=== PATIENT | female | born 1950 | race Two or more races ===

== ENCOUNTER 2018-11-07 05:43 | Day surgery (SDC) | payer MEDICAID ==
[~2018-11-07] VITALS: Ht 154.9 cm; Wt 76.2 kg
[2018-11-07] MEDS ORDERED: TROPICAMIDE 1% OPHTH DROPS 15ML RIGHTEYE NR (06:00)
[2018-11-07] MEDS ORDERED: PHENYLEPHRINE HCL 10% OPHTH DROPS 5ML RIGHTEYE NR (06:00)
[2018-11-07] MEDS ORDERED: LIDOCAINE HCL/PF 2% 20 MG/ML 10ML VIAL ONE (06:00)
[2018-11-07] MEDS ORDERED: NEO/POLYMYX B SULF/DEXAMETH OPHTH OINT 3.5GM ONE (06:00)
[2018-11-07] MEDS ORDERED: PREDNISOLONE ACETATE 1% OPHTH DROPS 1ML ONE (06:00)
[2018-11-07] MEDS ORDERED: CYCLOPENTOLATE HCL 1% OPHTH DROPS 2ML RIGHTEYE NR (06:00)
[2018-11-07] MEDS ORDERED: BALANCED SALT IRRIG SOLN 15ML ONE (06:00)
[2018-11-07] MEDS ORDERED: LIDOCAINE HCL 2%/EPINEPHRINE 1:100,000 20 ML VIAL INFIL ONE (06:00)
[2018-11-07] MEDS ORDERED: BUPIVACAINE HCL/PF 0.75% (7.5MG/ML) 10ML ONE (06:00)
[2018-11-07] MEDS ORDERED: HYALURONATE SODIUM 14 MG/ML 0.85ML SYRINGE IO ONE (06:25)
[2018-11-07 06:26] LABS: BASOPHILS % 0.6 % (0.0-2.0); HEMATOCRIT. 36.6 % (36.0-48.0); HEMOGLOBIN. 12.5 g/dL (12.0-16.0); LYMPHOCYTES % 37.7 % (20.0-50.0); MEAN CORPUSCULAR HEMOGLOBIN 31.4 pg (28.0-32.0); MEAN PLATELET VOLUME 7.6 fl (7.4-10.4); MONOCYTES % 9.4 % (2.0-8.0); NEUTROPHILS % 50.3 % (40.0-76.0); PLATELET 265 x1000/uL (130-400); RED BLOOD CELL COUNT 3.98 mill/uL (4.2-5.4); RED CELL DISTRIBUTION WIDTH 12.5 % (11.6-14.6)
[2018-11-07] MEDS ORDERED: LACTATED RINGERS 1,000 ML IV SCH (06:30)
[2018-11-07] MEDS ORDERED: BALANCED SALT IRRIG SOLN COMB1 500ML OP ONE (06:30)
[2018-11-07 06:33] LABS: CHLORIDE 111 mEq/L (98-107)
[2018-11-07] MEDS ORDERED: PANT20TA3 PO (07:23)
[2018-11-07] MEDS ORDERED: ENAL10TA PO (07:23)
[2018-11-07] MEDS ORDERED: FURO20TA4 PO (07:23)
[2018-11-07] MEDS ORDERED: SUCCINYLCHOLINE CHLORIDE 200MG/10ML IV ONE (07:48)
[2018-11-07] MEDS ORDERED: LIDOCAINE HCL/PF 1% 10 MG/ML 5ML VIAL ONE (07:48)
[2018-11-07] MEDS ORDERED: MIDAZOLAM HCL 2 MG/2 ML VIAL ONE ×2 (07:48→07:59)
[2018-11-07] MEDS ORDERED: PROPOFOL 200MG/20ML VIAL IV ONE (07:48)
[2018-11-07] MEDS ORDERED: SODIUM CHLORIDE 0.9% 1,000 ML IV ONE (08:34)
[2018-11-07] MEDS ORDERED: ONDANSETRON HCL 4MG/2ML INJ IV PRN (08:45)
== END 2018-11-07 10:00 | disposition home or self-care (01) ==
LOC: OR 05:43
PROVIDERS: ATTEND Ophthalmology
DX: H25.89 Other age-related cataract (principal); I10 Essential (primary) hypertension; Z98.42 Cataract extraction status, left eye; Z79.899 Other long term (current) drug therapy
CPT/HCPCS: 36415; 66984; 80048; 85025; J0330; J2250; J2704; J3490; J7120; V2632